=== PATIENT | male | born 1970 | race American Indian/Alaskan Native ===

== ENCOUNTER 2020-08-30 12:44 | Emergency (ER) | payer OTHER, SELFPAY ==
[2020-08-30 12:54] VITALS: BP 149/72; PULSE 98; RESP 12; TEMP 35.9; O2SAT 99; BMI 22.4
--- NOTE | 2020-08-30 13:10 | ED_ITS ---
HPI - Recheck/Abnormal Lab/Rx General Chief Complaint: Recheck/Abnormal Lab/Rx Stated Complaint: lost BP med, having trouble sleeping Time Seen by Provider: 08/30/20 12:53 Source: patient Mode of arrival: Ambulatory Limitations: no limitations History of Present Illness HPI narrative: Patient is a 50-year-old male with a history of hypertension. He states that he was once on atenolol however his doctor switched him to another combination medication with hydrochlorothiazide. When I mentioned lisinopril/hydrochlorothiazide he thought that this was potentially the medication. He is unsure of the exact dose but he does think that 20/25 sounds appropriate. He states that when he has not been on his medicines he becomes very anxious and has problems sleeping at night and that is what is been going on for the past 3 weeks. He states that he lost his medications. He is here for medication refill. Related Data Previous Rx's Medication Instructions Recorded lisinopril-hydrochlorothiazide 1 tab PO DAILY #30 tab 08/30/20 Allergies Allergy/AdvReac Type Severity Reaction Status Date / Time No Known Drug Allergies Allergy Verified 08/30/20 12:56 Review of Systems Constitutional Constitutional: Denies frequent falls and Denies headache(s) ENT Ears, Nose, Mouth, and Throat: Denies headache(s) Cardiovascular Cardiovascular: Denies chest pain and Denies dyspnea Respiratory Respiratory: Denies dyspnea Gastrointestinal Gastrointestinal: Reports system reviewed and no additional complaints, except as documented Integumentary/Breasts Skin/Breast: Reports system reviewed and no additional complaints, except as documented Neurologic Neurologic: Denies frequent falls and Denies headache(s) Psychiatric Comments: Anxiety and problems sleeping Hematologic/Lymphatic On Anticoagulants: No Allergic/Immunologic Allergic/Immunologic: Reports system reviewed and no additional complaints, except as documented Patient History Medical History Hypertension Social History Smoking Status: Current every day smoker Smoking Status: Current every day smoker alcohol intake frequency: a few times a month Substance Use Type: marijuana Exam Initial Vital Signs Initial Vital Signs: Vital Signs Temperature 96.7 F L 08/30/20 12:54 Pulse Rate 98 H 08/30/20 12:54 Respiratory Rate 12 08/30/20 12:54 Blood Pressure 149/72 H 08/30/20 12:54 Pulse Oximetry 99 08/30/20 12:54 Const General: cooperative and comfortable Limitations: mental status not altered HENMT Head: normal to inspection and normocephalic Resp Effort & Inspection: normal respiratory effort Cardio Rate: regular rate Skin Lesions: no lesions Rashes: no rashes Neuro General: patient alert and patient awake Cognition: normal cognition Speech: speech normal Extrem General: normal to inspection and capillary refill normal Psych Appearance: grossly normal and well kempt Course Vital Signs Vital signs: Vital Signs - 8 hr 08/30/20 12:54 Temperature 96.7 F L Pulse Rate 98 H Respiratory Rate 12 Blood Pressure 149/72 H Pulse Oximetry 99 MDM - Recheck/Abnormal Lab/Rx MDM Narrative Medical decision making narrative: Will restart the patient on lisinopril/hydrochlorothiazide. He was also given the contact information for health resource specialist teacher. Given return precautions and follow-up instructions. He expressed understanding and agreement. Discharge Plan Departure Patient Disposition: Home Clinical Impression: Encounter for medication refill, Hypertension Instructions: Essential Hypertension Activity Restrictions/Additional Instructions: I do recommend you contact the health resources coordinator [phone]. This individual can help you establish a primary provider here in the area. Start taking the blood pressure medications as directed. Return to the emergency department for any new or worsening symptoms. Prescriptions: New lisinopril-hydrochlorothiazide 20-25 mg tablet 1 tab PO DAILY Qty: 30 RF: 2
== END 2020-08-30 13:21 | disposition home or self-care (01) ==
PROVIDERS: Emergency Provider Emergency Medicine
DX: Z76.0 Encounter for issue of repeat prescription (principal); I10 Essential (primary) hypertension
CPT/HCPCS: 99281